=== PATIENT | male | born 1990 | race Caucasian/White ===

== ENCOUNTER 2016-04-20 22:47 | Emergency (ER) | payer OTHER ==
[~2016-04-20] VITALS: Ht 167.6 cm; Wt 74.0 kg
[~2016-04-20 22:47] MED LIST: CHLO25CA9 PO
[2016-04-20 22:55] VITALS: Ht 167.6 cm; Wt 74.0 kg
[2016-04-20] MEDS ORDERED: ONDANSETRON (ODT) 4 MG TAB ODT STA (23:27)
[2016-04-20] MEDS ORDERED: LORAZEPAM 2 MG INJ IM ONE (23:30)
[2016-04-20] MEDS ORDERED: CHLO25CA9 PO (23:46)
[2016-04-20] MEDS ORDERED: ONDA4TAB14 PO (23:46)
--- NOTE | 2016-04-20 23:46 | ERD ---
ER Documentation Chief Complaint Date/Time DATE: 04/20/16 TIME: 23:45 Chief Complaint ANXIOUS AND VOMITING; AH. STATES LAST ETOH AND DRUG USE X 1 WK AGO. HPI This is a 25-year-old male was anxious and vomiting. He denies any suicidal homicidal ideation. Patient said he is withdrawing from alcohol and drug abuse from last week. Last drink or drug abuse was 1 week ago. No fevers or chills. No hallucinations. ROS All systems reviewed and are negative except as per history of present illness. Medications Home Meds Active Scripts Chlordiazepoxide* (Chlordiazepoxide*) 25 Mg Capsule, 25 MG PO Q8 Y for CONTROL WITHDRAWAL SYMPTOMS, #10 CAP Prov:MIKE GARCIAKatelynn 02/16/16 Allergies Allergies: Coded Allergies: No Known Allergies (Verified Allergy, 01/18/11) PMhx/Soc History of Surgery: No Anesthesia Reaction: No Hx Neurological Disorder: No Hx Respiratory Disorders: No Hx Cardiac Disorders: No Hx Psychiatric Problems: No Hx Miscellaneous Medical Probl: No Hx Alcohol Use: No Hx Substance Use: Yes (METH) Hx Tobacco Use: No Physical Exam Vitals Vital Signs Date Time Temp Pulse Resp B/P Pulse Ox O2 Delivery O2 Flow Rate FiO2 04/20/16 22:55 98.7 69 18 136/102 99 Physical Exam Const: [] Head: Atraumatic Eyes: Normal Conjunctiva ENT: Normal External Ears, Nose and Mouth. Neck: Full range of motion..~ No meningismus. Resp: Clear to auscultation bilaterally Cardio: Regular rate and rhythm, no murmurs Abd: Soft, non tender, non distended. Normal bowel sounds Skin: No petechiae or rashes Back: No midline or flank tenderness Ext: No cyanosis, or edema Neur: Awake and alert Psych: Normal Mood and Affect Results 24 hrs Current Medications Medications (Trade) Dose Ordered Sig/Melodie Route PRN Reason Start Time Stop Time Status Last Admin Dose Admin Lorazepam (Ativan) 2 mg ONCE ONCE IM 04/20/16 23:30 04/20/16 23:31 DC 04/20/16 23:34 Ondansetron HCl (Zofran Odt) 4 mg ONCE STAT ODT 04/20/16 23:27 04/20/16 23:28 DC 04/20/16 23:34 Procedures/MDM Medical decision-making: Patient comes in essentially for withdrawal-like symptoms. At this point is clinically stable. Be discharged home. Discharged with Librium and Zofran. Departure Diagnosis: Primary Impression: Withdrawal syndrome Substance type: sedative, hypnotic or anxiolytic Qualified Code: F13.239 - Withdrawal from sedative, hypnotic, or anxiolytic drug Condition: Stable MIKE GARCIA Apr 20, 2016 23:45
[2016-04-20 23:56] VITALS: BP 136/89; PULSE 70; RESP 20
== END 2016-04-20 23:54 | disposition home or self-care (01) ==
LOC: E/R 22:47
DX: F13.239 Sedative, hypnotic or anxiolytic dependence with withdrawal, unspecified (principal); R11.10 Vomiting, unspecified; R40.2142 Coma scale, eyes open, spontaneous, at arrival to emergency department; R40.2252 Coma scale, best verbal response, oriented, at arrival to emergency department; R40.2362 Coma scale, best motor response, obeys commands, at arrival to emergency department; Z87.891 Personal history of nicotine dependence
CPT/HCPCS: 96372; J2060; Z7502; Z7610

== ENCOUNTER 2016-07-04 15:26 | Emergency (ER) | payer OTHER ==
[~2016-07-04] VITALS: Ht 160 cm; Wt 65.0 kg
[~2016-07-04 15:26] MED LIST changes: +ONDA4TAB14 PO
[2016-07-04 15:42] VITALS: Ht 160 cm; Wt 65.0 kg
--- NOTE | 2016-07-04 16:38 | RADRPT ---
PROCEDURE: XR Chest. CLINICAL INDICATION: Cough for 2 weeks TECHNIQUE: Single frontal chest x-ray. COMPARISON: None. FINDINGS: The lungs are adequately expanded and clear. There is no focal consolidation, pleural effusion, or pneumothorax. The heart and mediastinal contours are unremarkable. Bones are unremarkable. There a re no acute fractures. RPTAT: ZZ IMPRESSION: No acute cardiopulmonary abnormality. .Anabella Campos MD, MD Date Time Electronically viewed and signed by .Anabella Campos MD, on 07/04/2016 16:38 .T/
[2016-07-04] MEDS ORDERED: AZIT250T94 PO (17:05)
[2016-07-04] MEDS ORDERED: BENZ100C70 PO (17:05)
[2016-07-04] MEDS ORDERED: POLY10DR19 LEFT EYE (17:05)
[2016-07-04] MEDS ORDERED: ALBU8.5H3 INH (17:05)
--- NOTE | 2016-07-04 17:40 | ERD ---
ER Documentation Chief Complaint Date/Time DATE: 07/04/16 TIME: 17:37 Chief Complaint cough sore throat x 2 weeks HPI 25-year-old male with a past medical history of drug abuse, crystal meth presents the ED complaining of a productive cough, sore throat that started 2 weeks ago. Reports that his mother is also sick with similar symptoms. States that he has been drinking hot water and taking Robitussin with no relief. States that he started to have discharge and his left eye earlier this morning. Denies wearing any contacts or glasses. Denies any recent traveling. Denies any chest pain, shortness of breath, abdominal pain, nausea, vomiting, headache , neck stiffness, neck pain. ROS All systems reviewed and are negative except as per history of present illness. Medications Home Meds Active Scripts Polymyxin B Sulfate-TMP* (Polymyxin B-TMP Eye Drops*) 10 Ml Drops, 2 DROP LEFT EYE QID for conjunctivitis for 5 Days, #1 EA Prov:STEPHANIE ALBARADO PA-C 07/04/16 Albuterol Sulfate* (Proair HFA*) 8.5 Gm Hfa.aer.ad, 2 PUFF INH Q4, #1 INHALER Prov:STEPHANIE ALBARADO PA-C 07/04/16 Benzonatate* (Tessalon Perle*) 100 Mg Capsule, 100 MG PO Q8H Y for COUGH, #20 CAP Prov:STEPHANIE ALBARADO PA-C 07/04/16 Azithromycin* (Zithromax*) 250 Mg Tablet, 250 MG PO .ZPACK DIRECTED, #6 TAB TAKE 500 MG (2 TABS) THE FIRST DAY THEN 250 MG (1 TAB) DAYS 2-5 Prov:STEPHANIE ALBARADO PA-C 07/04/16 Ondansetron (Ondansetron Odt) 4 Mg Tab.rapdis, 4 MG PO Q6H Y for NAUSEA AND/OR VOMITING, #10 TAB Prov:MIKE GARCIA S. 04/20/16 Chlordiazepoxide* (Chlordiazepoxide*) 25 Mg Capsule, 25 MG PO Q8 Y for CONTROL WITHDRAWAL SYMPTOMS, #10 CAP Prov:MIKE GARCIA S. 04/20/16 Chlordiazepoxide* (Chlordiazepoxide*) 25 Mg Capsule, 25 MG PO Q8 Y for CONTROL WITHDRAWAL SYMPTOMS, #10 CAP Prov:MIKE GARCIA 02/16/16 Allergies Allergies: Coded Allergies: No Known Allergies (Verified Allergy, 01/18/11) PMhx/Soc History of Surgery: No Anesthesia Reaction: No Hx Neurological Disorder: No Hx Respiratory Disorders: No Hx Cardiac Disorders: No Hx Psychiatric Problems: No Hx Miscellaneous Medical Probl: No (drug/ETOH abuse) Hx Alcohol Use: Yes Hx Substance Use: Yes (METH-stopped 1wk ago) Hx Tobacco Use: No Physical Exam Vitals Vital Signs Date Time Temp Pulse Resp B/P Pulse Ox O2 Delivery O2 Flow Rate FiO2 07/04/16 15:42 98.2 112 18 126/72 98 Physical Exam Const: Eip-mya-bsecrsure, well-nourished. In no acute distress. Head: Atraumatic, normocephalic Eyes: Normal Conjunctiva without injection. No purulent discharge. PERRL. EOMI ENT: Normal external ear. Ear canal without erythema. Tympanic membrane pearly tejeda without effusion or bulging. Nasal canal clear with normal turbinates. Moist oropharynx without tonsillar exudates. Non-erythematous pharynx. Uvula midline. No drooling. No trismus. Neck: Full range of motion. No meningismus. No cervical lymphadenopathy. Resp: Clear to auscultation bilaterally. No wheezing, rhonchi, rales, or crackles. No accessory muscle use. No retractions. Cardio: Regular rate and rhythm. No murmurs, rubs or gallops. Abd: Soft, non tender, non distended. Normal bowel sounds. No palpable masses. No rebound tenderness. No guarding. Skin: No petechiae or rashes Back: No midline tenderness. No CVA tenderness. Ext: No cyanosis, or edema. Neur: Awake and alert. Psych: Normal Mood and Affect Procedures/MDM This is a 25-year-old male with a past medical history of crystal meth use presents to the ED complaining of a productive cough, sore throat that started 2 weeks ago. Patient is afebrile and nontoxic-appearing. A chest x-ray was ordered to further evaluate patient. This patient presents to the ED with symptoms consistent with bronchitis. Patient is afebrile and has normal vital signs. Patient's physical exam include lungs which were clear to auscultation and a normal pulse oximetry. There is a low suspicion for pneumonia, pneumothorax, pulmonary embolism, epiglottitis, otitis media, otitis externa, viral/strep pharyngitis, sinusitis, peritonsillar abscess, mastoiditis, retropharyngeal abscess, meningitis, sepsis, acute abdomen or other emergent conditions. Fluids, rest, and symptomatic treatment are recommended for the management of patient's symptoms. PROCEDURE: XR Chest. CLINICAL INDICATION: Cough for 2 weeks TECHNIQUE: Single frontal chest x-ray. COMPARISON: None. FINDINGS: The lungs are adequately expanded and clear. There is no focal consolidation, pleural effusion, or pneumothorax. The heart and mediastinal contours are unremarkable. Bones are unremarkable. There are no acute fractures. RPTAT: ZZ IMPRESSION: No acute cardiopulmonary abnormality. Discharge medications: Tessalon Perles, Zithromax, Pro-air, Polymyxin TMP eyedrops Patient was instructed to return to the ED for any new or worsening symptoms. They should otherwise follow up with the primary care provider within 1-2 days. The patient's questions were answered at the time of discharge. Patient understood and agreed with discharge management. Departure Diagnosis: Primary Impression: Cough Additional Impression: Discharge of left eye Condition: Stable Patient Instructions: Bronchitis, Antiobiotic Treatment (Adult) Referrals: COMMUNITY CLINICS YOU HAVE RECEIVED A MEDICAL SCREENING EXAM AND THE RESULTS INDICATE THAT YOU DO NOT HAVE A CONDITION THAT REQUIRES URGENT TREATMENT IN THE EMERGENCY DEPARTMENT. FURTHER EVALUATION AND TREATMENT OF YOUR CONDITION CAN WAIT UNTIL YOU ARE SEEN IN YOUR DOCTORS OFFICE WITHIN THE NEXT 1-2 DAYS. IT IS YOUR RESPONSIBILITY TO MAKE AN APPOINTMENT FOR FOLOW-UP CARE. IF YOU HAVE A PRIMARY DOCTOR --you should call your primary doctor and schedule an appointment IF YOU DO NOT HAVE A PRIMARY DOCTOR YOU CAN CALL OUR PHYSICIAN REFERRAL HOTLINE AT IF YOU CAN NOT AFFORD TO SEE A PHYSICIAN YOU CAN CHOSE FROM THE FOLLOWING [facility] [address] [facility]. [facility] [address] [facility]. [facility] [address] [facility] [address] [facility] [address] [facility]. [facility] [address] [facility]. [facility] YOU HAVE RECEIVED A MEDICAL SCREENING EXAM AND THE RESULTS INDICATE THAT YOU DO NOT HAVE A CONDITION THAT REQUIRES URGENT TREATMENT IN THE EMERGENCY DEPARTMENT. FURTHER EVALUATION AND TREATMENT OF YOUR CONDITION CAN WAIT UNTIL YOU ARE SEEN IN YOUR DOCTORS OFFICE WITHIN THE NEXT 1-2 DAYS. IT IS YOUR RESPONSIBILITY TO MAKE AN APPOINTMENT FOR FOLOW-UP CARE. IF YOU HAVE A PRIMARY DOCTOR --you should call your primary doctor and schedule and appointment IF YOU DO NOT HAVE A PRIMARY DOCTOR YOU CAN CALL OUR PHYSICIAN REFERRAL HOTLINE AT . IF YOU CAN NOT AFFORD TO SEE A PHYSICIAN YOU CAN CHOSE FROM THE FOLLOWING [facility] INSTITUTIONS: [facility] [address] [place] [address] [facility] [address] [place] [address] [facility] [address] [place] [address] [facility]CIALT[facility] Additional Instructions: Call your primary care doctor TOMORROW for an appointment during the next 1-2 days.See the doctor sooner or return here if your condition worsens before your appointment time. STEPHANIE ALBARADO PA-C Jul 04, 2016 17:40
== END 2016-07-04 17:24 | disposition home or self-care (01) ==
LOC: FTE 15:26
DX: R05 Cough (principal); H57.8 Other specified disorders of eye and adnexa
CPT/HCPCS: 71010; Z7502

== ENCOUNTER 2016-12-02 14:52 | Emergency (ER) | payer OTHER ==
[~2016-12-02] VITALS: Ht 165.1 cm; Wt 66.0 kg
[~2016-12-02 14:52] MED LIST changes: +ALBU8.5H3 INH; +AZIT250T94 PO; +BENZ100C70 PO; +POLY10DR19 LEFT EYE
[2016-12-02 14:55] VITALS: Ht 165.1 cm; Wt 66.0 kg
[2016-12-02] MEDS ORDERED: AMPICILLIN/SULBAC 1.5 GM INJ IM ONE (17:00)
[2016-12-02] MEDS ORDERED: DIPHTH/TET/ACEL PERTUSS (ADULT) 0.5 ML VIAL IM* ONE (17:00)
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
[2016-12-02] MEDS ORDERED: IBUP-1542 PO (18:20)
[2016-12-02] MEDS ORDERED: AMOX1TAB10 PO (18:20)
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
[2016-12-02 18:49] VITALS: PULSE 68; RESP 18; TEMP 98.8
== END 2016-12-02 18:45 | disposition home or self-care (01) ==
LOC: FTE 14:52
DX: L03.011 Cellulitis of right finger (principal); S61.451A Open bite of right hand, initial encounter; W50.3XXA Accidental bite by another person, initial encounter; Y92.9 Unspecified place or not applicable; Z23 Encounter for immunization
CPT/HCPCS: 73130; 90471; 90715; 96372; J0295; Z7502

== ENCOUNTER 2016-12-18 18:04 | Emergency (ER) | payer SELFPAY ==
[~2016-12-18] VITALS: Ht 165.1 cm; Wt 67.5 kg
[~2016-12-18 18:04] MED LIST changes: +AMOX1TAB10 PO; +IBUP-1542 PO
[2016-12-18 18:17] VITALS: Ht 165.1 cm; Wt 67.5 kg
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
[2016-12-18] MEDS ORDERED: SULF1TAB31 PO (19:43)
[2016-12-18] MEDS ORDERED: BEN25 PO (19:43)
[2016-12-18 19:58] VITALS: BP 120/77; PULSE 70; RESP 18; TEMP 98.2
== END 2016-12-18 20:23 | disposition home or self-care (01) ==
LOC: FTE 18:04
DX: M79.89 Other specified soft tissue disorders (principal)
CPT/HCPCS: 99283

== ENCOUNTER 2017-08-28 13:30 | Emergency (ER) | END 2017-08-28 15:21 | disposition home or self-care (01) ==

== ENCOUNTER 2017-12-28 15:03 | Emergency (ER) | END 2017-12-28 16:25 | disposition home or self-care (01) ==

== ENCOUNTER 2018-02-16 08:22 | Emergency (ER) | END 2018-02-16 08:57 | disposition home or self-care (01) ==